=== PATIENT | male | born 1975 | race Hispanic/Latino ===

== ENCOUNTER 2022-11-01 18:36 | Emergency (ER) | payer OTHER ==
--- OUTSIDE RECORDS SUMMARY | 2022-11-01 18:44 | XMS REPORT | Continuity of Care Document ---
:1975 Author Organization [facility] t Address [address] [place] [address] Dr. Gu[address]ume [address] [place] [address] Care Team Providers Name Role Phone Perez SAXENA, [facility] Primary Care Physician [phone] KRISTEL BALDWIN Attending Clinician Unavailable Kristel Bucio Attending Clinician Jessica Mayes MD Attending Clinician [phone] JESSICA MAYES Attending Clinician Unavailable Jeovany Patterson MD Attending Clinician Ugo Maya CRNA Attending Clinician [phone] Flaquita Araujo MD Attending Clinician FLAQUITA ARAUJO Attending Clinician Unavailable Gilberto Jansen MD Attending Clinician GILBERTO JANSEN Attending Clinician Unavailable RAE JOHNSON Attending Clinician Unavailable RAE JOHNSON Attending Clinician Unavailable [facility], [facility] Attending Clinician Unavailable Rae Johnson MD Attending Clinician Doctor Unassigned, [place] Attending Clinician Unavailable SKYLAR NUNEZ Attending Clinician Unavailable JESSICA MAYES Admitting Clinician Unavailable FLAQUITA ARAUJO Admitting Clinician Unavailable GILBERTO JANSEN Admitting Clinician Unavailable Payers Payer Name Policy Type Policy Number Effective Date Expiration Date Vipin [place]' [id number] 2021 COMP 00:00:00 Problems Condition Condition Condition Status Onset Resolution Last Treating Co mments Source Name Details Category Date Date Treatment Clinician Date Hypertensi Hypertensi Disease Active 2021-[address] [facility] Olecranon Olecranon Disease Active [facility] bursitis bursitis 06-01 [facility] of left of left 00:00: Medical elbow elbow 00 Center Tear of Tear of Disease Active [facility] left left 06-01 [facility] supraspina supraspina 00:00: Me dical tus tendon tus tendon 00 Ce nter Work Work Disease Active [facility] related related 06-01 [facility] injury injury 00:00: Medical 00 Center SLAP SLAP Disease Active [facility] lesion of lesion of - Luke s left left 00:00: Medical shoulder shoulder 00 Center Labral Labral Disease Active [facility] tear of tear of 06-01 [facility] long head long head 00:00: Medi jana of left of left 00 Center biceps biceps tendon, tendon, initial initial encounter encounter Tendinopat Tendinopat Disease Active [facility] hy of left hy of left 8-03 [facility] biceps biceps 00:00: Medical tendon tendon 00 Center Impingemen Impingemen Disease Active [facility] t syndrome t syndrome - [facility] k[facility] of left of left 00:00: Medical shoulder shoulder 00 Center Uncontroll Uncontroll Disease Active U nick ed ed 8-20 ity of hypertensi [place] [facility] [place] Chest Chest Disease Active Univers tightness tightness 8-20 ity of 00:00: [place] 00 Medical Branch Palpitatio Palpitatio Disease Active U nick ns ns 8-20 ity of 00:00: 00 Medical Branch TIA TIA Disease Active Overview: Univer s (transient (transient Formattin ity of ischemic ischemic g of this Jace as attack) attack) note Medical might be Branch different from the original. 2018 Allergies, Adverse Reactions, Alerts Allergy Allergy Status Severity Reaction(s) Onset Inactive Treating Comm ents Source Name Type Date Date Clinician NO KNOWN Allergy Active [facility] ALLERGIE S Social History Social Habit Start Date Stop Date Quantity Comments Source History SDOH [facility] Alcohol Frequency Medical Center History SDOH [facility] Alcohol Std Medical Cente r Drinks History SDOH [facility] Alcohol Binge Medical Matthew [facility] Exposure to 2022-09-26 2022-10-[address] [facility] SARS-CoV-2 00:00:00 09:30:00 Medical Center (event) Alcohol intake 2022-10-06 2022-10-06 [facility]00 of alcohol Medical Center (finding) History SDOH 2022-06-29 2022-06-[address] [facility] Alcohol Comment 00:00:00 00:00:00 Medical C enter Tobacco use and 2022-06-23 2022-06-[address] [facility] exposure 00:00:00 00:00:00 Medical Center Tobacco Comment 2021-06-18 2021-06-18 2-3 cigarettes Unive rsity of 00:00:00 00:00:00 per day [facility] History of 2011-05-30 Smoker University of tobacco use 00:00:00 [facility] Sex Assigned At [address] [facility] 00:00:00 00:00:00 Medical Center Smoking Status Start Date Stop Date Source Never smoker [facility] Former smoker 2021-06-18 00:00:00 2021-06-18 00:00:00 [facility] Medications Ordered Filled Start Stop Current Ordering Indication Dosage Frequency Signature Comments Components Source Medication Medication Date Date Medication? Clinician (SIG) Name Name TAKE 2021-10 No TABLET BY 2-05 MOUTH THREE 00:00: TIMES DAILY 00 TAKE 2021-10 No TABLET BY 2-05 MOUTH ONCE 00:00: DAILY 00 losartan-hy 2021-10 Yes 1{tbl} QD Take [address] droCHLOROth 2-05 tablet by Paramjit dow 00:00: mouth Medical (HYZAAR) 00 daily. Center 50-12.5 mg per tablet celecoxib 2021- No 200mg QD Take [address] (CeleBREX) 06-23 capsule [facility] 200 MG 00:00: 23:59 (200 mg Medical capsule 00 :00 total) by Center mouth daily for 30 days. gabapentin 2021- No 100mg [id number] Take [address] (NEURONTIN) 06-23 [id number] capsule [facility] 100 MG 00:00: 23:59 3D (100 mg Medical capsule 00 :00 total) by Center mouth 3 (three) times daily for 30 days. ascorbic 2021- No 500mg QD Take 1 [facility] t acid, 06-23 tablet [facility] vitamin C, 00:00: 23:59 (500 mg Med ical (ascorbic 00 :00 total) by Cente r acid with mouth vinnie hips) daily for 500 MG 30 days. tablet traMADoL No 50mg Take [address] (ULTRAM) 50 06-23 tablet (50 L ukes mg tablet 00:00: 23:59 mg total) Me dical 00 :00 by mouth Center every 6 (six) hours as needed for Pain for up to 10 days Mild Pain. Max Daily Amount: 200 mg HYDROcodone 2021- No 1{tbl} Take [address] -acetaminop 06-23 tablet by Nadine coffman (NORCO 00:00: 23:59 mouth Medic al 10-325) 00 :00 every 6 Center 10-325 mg (six) per tablet hours as needed for Pain for up to 7 days. Max Daily Amount: 4 tablets docusate 2021- No 100mg Take 1 [facility] t sodium 06-23 capsule [facility]ukes (Colace) 00:00: 23:59 (100 mg Medic al 100 MG 00 :00 total) by Center capsule mouth once for 1 dose. naproxen 2021- No 550mg Q.5D Take [address] sodium 04-20-02 mg by Lukes (ANAPROX) 00:00: 00:00 mouth 2 Medi jana 550 MG 00 :00 (two) Center tablet times daily. amLODIPine Yes 5mg Take 1 Unive rs 5 mg tablet 1-24 tablet by ity of 00:00: mouth [place] 00 daily. Medical Branch amLODIPine Yes 1{tbl} QD Take [address] (NORVASC) 5 1-24 tablet by Paramjit es MG tablet 00:00: mouth Medical 00 daily. Center hydroCHLORO 2020-10 Yes [id number] 25mg Take 1 Univers thiazide 25 2-13 tablet by ity of mg tablet 00:00: mouth [place] 00 daily. Medical Branch losartan 2020-10 Yes [id number] 100mg Take 1 Un sharee 100 mg 2-13 tablet by ity of tablet 00:00: mouth [place] 00 daily. Medical Branch Vital Signs Vital Name Observation Time Observation Value Comments Source Systolic blood 2022-02-09 19:07:00 138 mm[Hg] Univer sity [facility] Diastolic blood 2022-02-09 19:07:00 96 mm[Hg] Unive rsity [facility] Heart rate 2022-02-09 19:06:00 78 /min [facility] Body height 2022-02-09 19:06:00 167.6 cm [facility] Body weight 2022-02-09 19:06:00 95.709 kg [facility] BMI 2022-02-09 19:06:00 34.06 kg/m2 [facility] Oxygen saturation in 2022-02-09 19:06:00 96 /min [facility] Arterial blood by [facility] Pulse oximetry Branch Systolic blood 2022-10-06 09:31:00 158 mm[Hg] [facility] Diastolic blood 2022-10-06 09:31:00 90 mm[Hg] [facility] S [facility] Heart rate 2022-10-06 09:31:00 79 /min [facility] Body temperature 2022-10-06 09:29:00 36.44 Magaly [facility] Body height 2022-10-06 09:29:00 167.6 cm [facility] Body weight 2022-10-06 09:29:00 99.791 kg [facility] BMI 2022-10-06 09:29:00 35.51 kg/m2 [facility] Heart Rate 2022-10-03 16:23:00 90.00 /min Respiratory Rate 2022-10-03 16:23:00 18.00 /min BP Systolic 2022-10-03 16:23:00 200 mm[Hg] BP Diastolic 2022-10-03 16:23:00 108 mm[Hg] Weight Measured 2022-10-03 16:23:00 227.00 pounds Height Measured 2022-10-03 16:23:00 66.00 inches Body Temperature 2022-10-03 16:23:00 98.30 degrees Respiratory rate 2022-07-01 17:30:00 18 /min [facility] Oxygen saturation in 2022-07-01 17:30:00 97 /min [facility] Arterial blood by Medical Ce nter Pulse oximetry Procedures Procedure Date / Time Performing Clinician Source Performed XR CHEST 1 VIEW PORTABLE 2022-07-01 16:29:00 Jeovany Patterson [facility] ARTHROSCOPY, SHOULDER, 2022-07-01 13:28:00 Jessica Mayes [facility] WITH ROTATOR CUFF REPAIR [facility] ARTHROSCOPY, SHOULDER, 2022-07-01 13:28:00 Jessica Mayes [facility] WITH ACROMIOPLASTY AND [facility] enter SUBACROMIAL SPACE DECOMPRESSION TENODESIS, BICEPS 2022-07-01 13:28:00 Jessica Mayes [facility] EKG-SCANNED 2022-07-01 00:00:00 [facility] ECG 12-LEAD 2022-06-28 10:27:01 Ugo Mai [facility] COVID ANTIGEN 2022-06-28 10:22:00 Jessica Mayes [facility] BASIC METABOLIC PANEL 2022-06-28 10:22:00 Ugo Mai CH I [facility] CBC W/PLT COUNT & AUTO 2022-06-28 10:22:00 Ugo Mai [facility] PT/APTT 2022-06-28 10:22:00 Ugo Mai [facility] CBC W/PLT COUNT & AUTO 2022-06-28 10:22:[address] [facility] Plan of Care Planned Activity Planned Date Details Comments Source Future Scheduled 2023-10-[address] [facility] Test 00:00:00 Counseling and Medical Cente r Screening (12+) [code = Tobacco Cessation Counseling and Screening (12+)] Future Scheduled 2022-10-[address] [facility] Test 00:00:00 (12+) [code = Medical Center DEPRESSION SCREENING (12+)] Future Scheduled 2022-06-[address] [facility] Test 00:00:00 (#1) [code = Medical Center INFLUENZA VACCINE (#1)] Future Scheduled [address] [facility] Test 00:00:00 (procedure) [code = [facility] Center [id number]] Future Scheduled 1996 DTAP/TDAP/TD VACCINES [facility] Test 00:00:00 (1 - Tdap) [code = Medical C enter DTAP/TDAP/TD VACCINES (1 - Tdap)] Future Scheduled 1995 HEPATITIS C SCREENING [facility] Test 00:00:00 [code = HEPATITIS C Medical Center SCREENING] Future Scheduled 1978-05-10 COVID-19 VACCINE (#1) [facility] Test 00:00:00 [code = COVID-[address] VACCINE (#1)] Goal Plan of Care Note [code = 90355-5] Goal Plan of Care Note [code = 72311-8] Goal Plan of Care Note [code = 00263-6] Goal Plan of Care Note [code = 68634-1] Goal Plan of Care Note [code = 46634-1] Goal Plan of Care Note [code = 01082-2] Encounters Start End Encounter Admission Attending Care Care Encounter Source Date/Time Date/Time Type Type Clinicians Facility Department ID 2022-10-06 2022-10-[address] VANDAMelvin [facility] [id number] [facility] St 09:18:08 09:47:23 [facility] 2022-10-06 2022-10-[address] [id number] [facility] St 09:15:00 09:47:23 Visit [facility] 2022-10-06 2022-10-06 Travel [facility] [id number] [facility]00 [facility] 2022-10-03 2022-10-03 Outpatient RIGO SIERRA [id number] Jamar 16:17:58 16:17:58 [id number] Junito 2022-10-03 2022-10-03 Outpatient [id number] 00:00:00 00:00:00 Visit [id number] 2022-08-25 2022-08-25 Outpatient REID BALDWIN [facility] [id number] 09:24:12 09:57:15 [facility] 2022-08-25 2022-08-25 Office Christina [facility] [id number] 09:15:00 09:57:15 Visit [facility] 2022-08-25 2022-08-25 Travel [facility] [id number] [facility] 00[facility]00 [facility] 2022-07-14 2022-07-14 Outpatient REID YAIRJOSHUA [facility] [id number] 09:10:49 09:58:57 [facility] 2022-07-14 2022-07-14 Office Christina [facility] [id number] 09:00:00 09:58:57 Visit [facility] 2022-07-14 2022-07-14 Travel [facility] [id number] [facility] 00:[facility]00 [facility] 2022-07-01 2022-07-01 [facility] Sugey [facility] [id number] 10:25:00 17:40:00 Encounter Jessica ewing [facility] 2022-07-01 2022-07-01 Outpatient EL SUGEY, [facility] Surgery [id number] [facility] 10:25:00 17:40:00 JESSICA 2022-07-01 2022-07-01 Anesthesia Jeovany Patterson [facility] [id number] 13:28:00 16:07:[address] Luis [facility] 2022-07-01 2022-07-01 Surgery Sugey [facility] [id number] 11:30:00 14:00:00 [facility] 2022-07-01 2022-07-01 Refill Sugey [facility] [id number] 00:00:00 00:00:00 [facility] 2022-07-01 2022-07-01 Travel [facility] [id number] [facility] 00:[facility]00 [facility] 2022-06-29 2022-06-29 Travel [facility] [id number] [facility] 00:[facility]00 00:[facility]:00 [facility] 2022-06-28 2022-06-28 [facility] [id number] 10:20:09 23:59:00 [facility] 2022-06-28 2022-06-28 Outpatient EL SLSL [facility] [id number] [facility] 10:20:09 23:59:00 2022-06-23 2022-06-23 Office Sugey [facility] [id number] 11:30:00 12:58:57 Visit [facility] 2022-06-23 2022-06-23 Outpatient EL SUGEY [facility] [id number] 11:28:46 12:58:57 [facility] 2022-06-23 2022-06-23 Travel [facility] [id number] [facility] 00:[facility]00 00:[facility]:00 [facility] 2022-06-02 2022-06-02 Telephone Sugey [facility] [id number] 00:00:00 00:00:00 [facility] 2022-06-01 2022-06-01 Mirian Mayes [facility] [id number] 00:00:00 00:00:00 Only Jessica Moran [facility] 2022-02-09 2022-02-09 Office [facility] [id number] Univers 13:45:00 14:00:00 Visit [facility] [id number] it y of [place] [id number] Jace as HANSEL?BLEA [phone] [address] OFFICE [facility] 2022-02-09 2022-02-09 Outpatient [facility] [id number] Univers 13:45:00 13:45:00 FLAQUITA neville [facility] [place] 2021-12-24 2021-12-24 Telephone [facility] [id number] Univers 00:00:00 00:00:00 Herbisidro [place] [id number] ity of [place] [facility] [id number] [phone] [facility] NAL [address] [place] [address] 2021-12-15 2021-12-15 Outpatient [facility] [id number] Univers 09:20:00 09:20:00 GILBERTO ity o f [facility] 2021-11-24 2021-11-24 Outpatient [facility] [id number] Univers 09:00:00 09:00:00 MIGDALIANGJUN ity o f [facility] 2021-11-22 2021-11-22 Telephone [facility] [id number] Univers 00:00:00 00:00:00 Herbisidro [facility] [id number] ity of [place] [facility] [id number] [phone] [place] [id number] [facility] 2021-11-16 2021-11-16 Telephone [facility] [id number] Univers 00:00:00 00:00:00 Gilberto HENDRIX [id number] ity of [place] [facility] [id number] [phone] Dc dical NAL 059 [facility] 2021-11-11 2021-11-11 Outpatient R INDERJIT [facility] [id number] Univers 07:57:20 23:59:00 GILBERTO neville o f [facility] 2021-11-11 2021-11-11 [facility] [id number] Univers 07:57:20 23:59:00 Encounter Gilberto HENDRIX [id number] ity of [place] [id number] [facility] [phone] Dc dical NAL 843 [facility] 2021-11-11 2021-11-11 Outpatient [facility] [id number] Univers 08:00:00 08:00:00 HERBISIDRO jamin o [facility] 2021-11-04 2021-11-04 Outpatient R RAE JOHNSON [facility] [id number] Univers 10:00:00 10:00:00 RAE JOHNSON [facility] [place] 2021-11-04 2021-11-04 [employer] [facility] [id number] Univers 08:30:00 08:45:00 Visit Rae Johnson [id number]. 10 it[id number] [phone] [address] 2021-11-04 2021-11-04 Outpatient R RAE JOHNSON [facility] [id number] Univers 08:30:00 08:30:00 RAE JOHNSON [facility] [place] 2021-11-01 2021-11-01 Outpatient [facility] [id number] Univers 08:00:00 08:00:00 GILBERTO jamin o abril [facility] 2021-10-12 2021-10-12 [place] [facility] [id number] Univers 00:00:00 00:00:00 Gilberto HENDRIX [id number] ity of [place] [facility] [id number] [phone] Dc dical NAL 9 [facility] 2021-10-11 2021-10-11 Outpatient R [facility] [id number] Univers 10:20:00 11:15:50 GILBERTO hawthorney o [facility] 2021-10-11 2021-10-11 Office [facility] [id number] Univers 10:20:00 11:15:50 Visit Gilberto HENDRIX [id number] ity of [place] [id number] [phone] Dc dic[address] 2021-10-11 2021-10-11 Outpatient R [facility] [id number] Univers 10:20:00 11:15:50 GILBERTO neville o [facility] 2021-10-11 2021-10-11 Outpatient R [facility] [id number] Univers 10:20:00 11:15:50 GILBERTO ity o [facility] 2021-10-11 2021-10-11 Orders Doctor HOANG [id number] Univers 00:00:00 00:00:00 Only Unassigned, TITA [id number] ity of [facility] [id number] Jace as [phone] [address] 2021-06-18 2021-06-18 Outpatient R [facility] [id number] Univers 15:30:00 15:30:00 SKYLAR itmariposa of [facility] 2021-06-18 2021-06-18 Orders Doctor HOANG [id number] Univers 00:00:00 00:00:00 Only Unassigned, TITA [id number] ity of [facility] [id number] Jace as [phone] [address] Results Test Description Test Time Test Comments Results Result [facility] e Comments RAD, CHEST, 1 Reason for VIEW, NON DEPT 2 exam:->anesthesia 16:41:[address] [facility] performed at [facility] the bedside?->Yes CENTERName: [facility] : 1975 Sex: M FINAL REPORT EXAMINATION: RAD, CHEST, 1 VIEW, NON DEPT INDICATION: Anesthesia concern COMPARISON: None FINDINGS: LINES/TUBES:EKG leads overlie the chest. LUNGS:The lungs are well-inflated. No focal consolidation or pulmonary edema. Mild left midlung subsegmental atelectasis. PLEURA:No pleural effusion or pneumothorax. MEDIASTINUM:The cardiomediastinal silhouette appears normal in size and shape. BONES/SOFT TISSUES:No acute osseous injury. ABDOMEN:No free air under the diaphragm. IMPRESSION: Left midlung subsegmental atelectasis. No focal pneumonia or airspace edema. Signed: Otto Grace MDReport Verified Date/Time: 07/01/2022 16:41:06 C METABOLIC PANEL 2022-06-28 11:06:49 Test Item Value Reference Range Interpretation Comme nts SODIUM (BEAKER) (test 140 meq/L 135-148 code = 381) POTASSIUM (BEAKER) 3.5 meq/L 3.6-5.5 L (test code = 379) CHLORIDE (BEAKER) (test 105 meq/L 98-106 code = 382) CO2 (BEAKER) (test code 25 meq/L 20-29 = 355) BLOOD UREA NITROGEN 14 mg/dL 10-26 (BEAKER) (test code = 354) CREATININE (BEAKER) 0.71 mg/dL 0.50-1.20 (test code = 358) GLUCOSE RANDOM (BEAKER) 97 mg/dL 70-110 (test code = 652) CALCIUM (BEAKER) (test 9.2 mg/dL 8.5-10.5 code = 697) EGFR (BEAKER) (test 116 mL/min/1.73 sq I nterpretation of eGFR values code = 1092) m Stage Descripti on Result G1 Normal or high >=90 G2 Mildly decreased 60-89 G3a Mildly to moderately 45-5 9 G3b Moderately to severely 30- 44 G4 Severly decreased 15-29 G5 Kidney failure <15Repo rted eGFR is based on the CK D-EPI 2020 equation that d oes not use a race coefficien tEstimated GFR is not as accurate as Creatinine Clearance in pr edicting glomerular filt ration rate. Estimated GFR i s not applicable for dialysis noam carrera [employer] Press Operator ID - [id number] ID - [id number] ID - [id number] ID - [id number] ID - [id number] ID - [id number] ID - [id number] ID - [id number] ID - [id number] ID - [id number] ID - [id number] ID - [id number] ID - [id number] 11:02:56 Test Item Value Reference Range Interpretation Comments PROTIME (BEAKER) (test 11.4 seconds 9.3-12.0 Final Information code = 759) (Auto Output) INR (BEAKER) (test 1.04 See_Comment Final Inf ormation code = 370) (Auto Output) [Automated mess age] The system Personal Style Finder generated this result transmit joselyn reference range : <=5.90. The reference range was not used to interpret this result as normal/abnormal . PARTIAL THROMBOPLASTIN 32.2 seconds 23.0-35.0 Final Information TIME (BEAKER) (test (Auto Ou tput) code = 760) RECOMMENDED COUMADIN/WARFARIN INR THERAPY RANGESSTANDARD DOSE: 2.0 - 3.0 Includes: PROPHYLAXIS for venous thrombosis, systemic embolization; TREATMENT for venous thrombosis and/or pulmonary embolus.HIGH RISK: Target INR is 2.5-3.5 for patients with mechanical heart valves.COVID [id number] 11:02:18 Test Item Value Reference Range Interpretation Comments SARS COVID ANTIGEN Negative Negative (test code = 82431-6) RUBI (test code = RUBI) The [employer] SARS Antigen test does not differentiate between SARS-CoV and SARS-CoV-2. The test has been authorized by the FDA under an EUA for use by authorized laboratories. Lab Interpretation Normal (test code = 25498-1) [facility] [id number] 11:02:18 Test Item Value Reference Range Interpretation Comments SARS COVID ANTIGEN (test code = Negative Negative [id number]) The [employer] SARS Antigen test does not differentiate between SARS-CoV and SARS-CoV-2.The test has been authorized by the FDA under an EUA for use by authorized laboratories.CBC W/PLT COUNT & AUTO [id number] 10:47:12 Test Item Value Reference Range Interpretation Comments WHITE BLOOD CELL COUNT (BEAKER) 10.7 K/ L 4.0-10.0 H (test code = 775) RED BLOOD CELL COUNT (BEAKER) 4.96 M/ L 4.20-5.80 (test code = 761) HEMOGLOBIN (BEAKER) (test code = 15.5 GM/DL 13.0-16.8 410) HEMATOCRIT (BEAKER) (test code = 43.2 % 36.0-50.0 411) MEAN CORPUSCULAR VOLUME (BEAKER) 87.1 fL 82.0-99.0 (test code = 753) MEAN CORPUSCULAR HEMOGLOBIN 31.3 pg 27.0-33.0 (BEAKER) (test code = 751) MEAN CORPUSCULAR HEMOGLOBIN CONC 35.9 GM/DL 32.0-36.0 (BEAKER) (test code = 752) RED CELL DISTRIBUTION WIDTH 12.7 % 12.0-15.0 (BEAKER) (test code = 412) PLATELET COUNT (BEAKER) (test 245 K/CU MM 150-430 code = 756) MEAN PLATELET VOLUME (BEAKER) 9.5 fL 6.0-11.5 (test code = 754) NUCLEATED RED BLOOD CELLS 0 /100 WBC 0-0 (BEAKER) (test code = 413) NEUTROPHILS RELATIVE PERCENT 63 % (BEAKER) (test code = 429) LYMPHOCYTES RELATIVE PERCENT 27 % (BEAKER) (test code = 430) MONOCYTES RELATIVE PERCENT 6 % (BEAKER) (test code = 431) EOSINOPHILS RELATIVE PERCENT 2 % (BEAKER) (test code = 432) BASOPHILS RELATIVE PERCENT 1 % (BEAKER) (test code = 437) NEUTROPHILS ABSOLUTE COUNT 6.79 K/ L 1.80-8.00 (BEAKER) (test code = 670) LYMPHOCYTES ABSOLUTE COUNT 2.92 K/ L 1.48-4.50 (BEAKER) (test code = 414) MONOCYTES ABSOLUTE COUNT (BEAKER) 0.64 K/ L 0.00-1.30 (test code = 415) EOSINOPHILS ABSOLUTE COUNT 0.26 K/ L 0.00-0.50 (BEAKER) (test code = 416) BASOPHILS ABSOLUTE COUNT (BEAKER) 0.06 K/ L 0.00-0.20 (test code = 417) IMMATURE GRANULOCYTES-RELATIVE 1 % 0-0 H PERCENT (BEAKER) (test code = 1317)
--- NOTE | 2022-11-01 19:58 | RAD REPORT ---
EXAM DESCRIPTION: CTStone Protocol - 11/01/2022 7:41 pm CLINICAL HISTORY: llq pain COMPARISON: No comparisons TECHNIQUE: CT of the abdomen and pelvis was performed. All CT scans are performed using dose optimization technique as appropriate and may include automated exposure control or mA/KV adjustment according to patient size. FINDINGS: Lower chest: No acute abnormality. Liver: No acute abnormality or suspicious lesions. Biliary: No biliary ductal dilatation. Stomach: No significant focal abnormality. Duodenum: No significant focal abnormality. Pancreas: No significant abnormality. Spleen: No significant abnormality. Adrenal: No suspicious lesions. Kidney/ureter: Mild left sided hydroureteronephrosis with punctate left UVJ stone measuring approxima tely 1 mm. Retroperitoneum: No retroperitoneal adenopathy. Vascular: No aneurysm. Bowel: No significant focal abnormality. Peritoneum: No ascites or free air. Tiny fat containing umbilical hernia. Bladder: Grossly unremarkable. Reproductive: No adnexal masses. Bones: No acute fracture. Other: n/a IMPRESSION: Punctate 1 mm stone at the left UVJ with mild left-sided hydroureteronephrosis.
[2022-11-01 20:24] LABS: Absolute Lymphocytes (CBC) 1.6 K/uL (0.7-4.9); Hematocrit 42.2 % (39.6-49.0); Lymphocytes % 11.4 % (15.3-44.8); MCV 86.8 fL (80-100); MPV 7.4 fL (7.6-11.3); RBC Red Blood Cell Count 4.87 M/uL (4.33-5.43)
[2022-11-01] MEDS ORDERED: MORPHINE 4 MG/ML SYR ONE (20:24)
[2022-11-01] MEDS ORDERED: TAMSULOSIN 0.4 MG SR CAP ONE (20:25)
[2022-11-01] MEDS ORDERED: ONDANSETRON 4 MG/2 ML VIAL ONE (20:25)
[2022-11-01] MEDS ORDERED: KETOROLAC 30 MG/ML INJ ONE (20:25)
[2022-11-01] MEDS ORDERED: NA CHLORIDE 0.9% 1,000 ML ONE (20:25)
[2022-11-01] MEDS ORDERED: MAGNESIUM SULFATE 1 gm IVPB 1 GM/100 ML BAG IV ONE (20:25)
[2022-11-01 20:40] LABS: Albumin 3.6 g/dL (3.4-5.0); Bilirubin Total 0.2 mg/dL (0.2-1.0); Potassium 3.6 mmol/L (3.5-5.1); Protein, Total 7.4 g/dL (6.4-8.2)
[2022-11-01 21:03] LABS: Urine Blood 3+ (Negative); Urine Glucose Negative (Negative); Urine Protein Negative (Negative); Urine Specific Gravity 1.015 (1.005-1.030)
--- NOTE | 2022-11-01 21:04 | EDPHYS ---
Physician Documentation [facility] Name: Octavio Galloway Age: 46 yrs Sex: Male : 1975 Arrival Date: 11/01/2022 Time: 18:39 Bed 15 Private MD: ED Physician Donnie Tolbert HPI: 11/01 20:07 This 46 yrs old Male presents to ER via Ambulatory with complaints of Flank kb Pain. 20:07 The patient has not recently seen a physician. kb 20:07 The patient presents with abdominal pain in the left lower quadrant. Onset: The kb symptoms/episode began/occurred today, at 18:00. The symptoms do not radiate. Associated signs and symptoms: none. The symptoms are described as constant, sharp. Modifying factors: The symptoms are alleviated by nothing, the symptoms are aggravated by pressure. Severity of pain: At its worst the pain was moderate in the emergency department the pain is unchanged. The patient has not experienced similar symptoms in the past. Pt reports sudden onset of LLQ pain at 1800. Denies any other symptoms. Historical: - Allergies: 19:22 No Known Allergies; tw5 - Home Meds: 19:22 HTN Medication [Active]; tw5 - PMHx: 19:22 Hypertensive disorder; tw5 - PSHx: 19:22 left shoulder surgery- 2021; - Immunization history:: Flu vaccine is up to date. - Social history:: Smoking status: Patient denies any tobacco usage or history of. ROS: 20:06 Constitutional: Negative for fever, chills, and weight loss. kb 20:06 Abdomen/GI: Positive for abdominal pain, Negative for nausea, vomiting, and diarrhea. 20:06 All other systems are negative. Exam: 20:06 Constitutional: This is a well developed, well nourished patient who is awake, alert, kb and in no acute distress. Head/Face: Normocephalic, atraumatic. ENT: Moist Mucous membranes Cardiovascular: Regular rate and rhythm with a normal S1 and S2. No gallops, murmurs, or rubs. No pulse deficits. Respiratory: Respirations even and unlabored. No increased work of breathing. Talking in full sentences Skin: Warm, dry with normal turgor. Normal color. MS/ Extremity: Pulses equal, no cyanosis. Neurovascular intact. Full, normal range of motion. Neuro: Awake and alert, GCS 15, oriented to person, place, time, and situation. Moves all extremities. Normal gait. Psych: Awake, alert, with orientation to person, place and time. Behavior, mood, and affect are within normal limits. 20:06 Abdomen/GI: Inspection: abdomen appears normal, Bowel sounds: normal, Palpation: soft, in all quadrants, moderate abdominal tenderness, in the left lower quadrant. Vital Signs: 19:19 BP 164 / 110; Pulse 114; Resp 18; Temp 98.1; Pulse Ox 95% on R/A; Weight 99.79 kg; tw5 Height 5 ft. 6 in. (167.64 cm); Pain 10/10; 20:40 BP 145 / 86; Pulse 96; Resp 18; Pulse Ox 97% on R/A; ll3 21:54 BP 148 / 88; Pulse 93; Resp 16; Pulse Ox 97% on R/A; ll3 19:19 Body Mass Index 35.51 (99.79 kg, 167.64 cm) tw5 MDM: 19:21 Patient medically screened. kb 20:07 Data reviewed: vital signs, nurses notes. Data interpreted: Pulse oximetry: on room air kb is 95 %. Interpretation: normal. 21:02 Counseling: I had a detailed discussion with the patient and/or guardian regarding: the kb historical points, exam findings, and any diagnostic results supporting the discharge/admit diagnosis, lab results, radiology results, the need for outpatient follow up, a family practitioner, a urologist, to return to the emergency department if symptoms worsen or persist or if there are any questions or concerns that arise at home. ED course: I considered the following discharge prescriptions or medication management in the emergency department: antibiotics considered, but not indicated at this time;History obtained from: pt and mother . 21:04 Differential diagnosis: diverticulitis, gastritis, Ureterolithiasis, urinary tract kb infection. Response to treatment: the patient's symptoms have resolved after treatment, the patient's pain is gone. 11/01 19:22 Order name: CBC with Diff; Complete Time: 20:30 kb 11/01 19:22 Order name: CMP; Complete Time: 20:44 kb 11/01 19:22 Order name: CT Stone Protocol; Complete Time: 20:01 kb 11/01 19:22 Order name: Lipase; Complete Time: 20:44 kb 11/01 21:03 Order name: Urine Dipstick-Ancillary; Complete Time: 21:04 EDMS 11/01 19:22 Order name: IV Saline Lock; Complete Time: 20:17 kb 11/01 19:22 Order name: Labs collected and sent; Complete Time: 20:17 kb Administered Medications: 20:27 Drug: Ketorolac 15 mg Route: IVP; Site: right antecubital; ll3 22:08 Follow up: Response: No adverse reaction ll3 20:28 Drug: NS 0.9% 1000 ml Route: IV; Rate: 1000 ml; Site: right antecubital; ll3 22:07 Follow up: Response: No adverse reaction; IV Status: Completed infusion; IV Intake: ll3 1000ml 20:30 Drug: Zofran (Ondansetron) 4 mg Route: IVP; Site: right antecubital; ll3 22:07 Follow up: Response: No adverse reaction ll3 20:32 Drug: Flomax (tamsulosin) 0.4 mg Route: PO; ll3 22:07 Follow up: Response: No adverse reaction ll3 20:33 Drug: morphine 4 mg Route: IVP; Infused Over: 4 mins; Site: right antecubital; ll3 22:08 Follow up: Response: No adverse reaction; Marked relief of symptoms ll3 20:39 Drug: Magnesium Sulfate 1 grams Route: IVPB; Infused Over: 30 mins; Site: right ll3 antecubital; 22:07 Follow up: Response: No adverse reaction; IV Status: Completed infusion; IV Intake: [id number] Disposition Summary: 11/01/22 21:03 Discharge Ordered Location: Home kb Condition: Stable kb Diagnosis - Calculus of ureter kb Followup: kb - With: Emergency Department - When: As needed - Reason: Worsening of condition Followup: kb - With: Private Physician - When: 2 - 3 days - Reason: Recheck today's complaints, Continuance of care, Re-evaluation by your physician Discharge Instructions: - Discharge Summary Sheet kb - Kidney Stones, [id number] kb - Dietary Guidelines to Help Prevent Kidney Stones kb Forms: - Medication Reconciliation Form kb - Thank You Letter kb - Antibiotic Education kb - Prescription Opioid Use kb Prescriptions: - Flomax 0.4 mg Oral capsule - take 1 capsule by ORAL route once daily 1/2 hour following the same meal each day; 10 capsule; Refills: 0, Product Selection Permitted - Zofran 4 mg Oral Tablet - take 1 tablet by ORAL route every 6 hours As needed; 20 tablet; Refills: 0, kb Product Selection Permitted - Diclofenac Sodium 75 mg Oral tablet,delayed release (DR/EC) - take 1 tablet by ORAL route 2 times per day As needed; 30 tablet; Refills: 0, kb Product Selection Permitted Signatures: Dispatcher [employer] Nilsa Daly, Chayito Etienne tw5 Kacie Curtis, RN RN ll3
--- NOTE | 2022-11-01 21:04 | ER ---
Nurse's Notes [facility] Name: Octavio Galloway Age: 46 yrs Sex: Male : 1975 Arrival Date: 11/01/2022 Time: 18:39 Bed 15 Private MD: Diagnosis: Calculus of ureter Presentation: 11/01 19:19 Chief complaint: Patient states: "I am having pain right here, it is bad. In my lower tw5 left side of my stomach. This is the first time I have had this kind of pain.". Coronavirus screen: Vaccine status: Patient reports receiving the 2nd dose of the covid vaccine. Moderna. Ebola Screen: Patient negative for fever greater than or equal to 101.5 degrees Fahrenheit, and additional compatible Ebola Virus Disease symptoms Patient denies exposure to infectious person. Patient denies travel to an Ebola-affected area in the 21 days before illness onset. Initial Sepsis Screen: Does the patient meet any 2 criteria? HR > 90 bpm. Does the patient have a suspected source of infection? Yes: Acute abdominal pain. Risk Assessment: Do you want to hurt yourself or someone else? Patient reports no desire to harm self or others. Onset of symptoms was November 01, 2022 at 18:00. 19:19 Method Of Arrival: Ambulatory tw5 19:19 Acuity: TALA 3 tw5 Triage Assessment: 19:22 General: Appears uncomfortable, Behavior is cooperative, appropriate for age. Pain: tw5 Complains of pain in left lower quadrant Pain currently is 10 out of 10 on a pain scale. Historical: - Allergies: 19:22 No Known Allergies; tw5 - Home Meds: 19:22 HTN Medication [Active]; tw5 - PMHx: 19:22 Hypertensive disorder; tw5 - PSHx: 19:22 left shoulder surgery- 2021; tw5 - Immunization history:: Flu vaccine is up to date. - Social history:: Smoking status: Patient denies any tobacco usage or history of. Screenin:[address] [facility] ED Fall Risk Assessment (Adult) History of falling in the last 3 months, ll3 including since admission No falls in past 3 months (0 pts) Confusion or Disorientation No (0 pts) Intoxicated or Sedated No (0 pts) Impaired Gait No (0 pts) Mobility Assist Device Used No (0 pt) Altered Elimination No (0 pt) Score/Fall Risk Level 0 - 2 = Low Risk Oriented to surroundings, Maintained a safe environment. Abuse screen: Denies threats or abuse. Denies injuries from another. Nutritional screening: No deficits noted. Tuberculosis screening: No symptoms or risk factors identified. Assessment: 20:30 General: Appears uncomfortable, Behavior is calm, cooperative. Pain: Complains of pain ll3 in left lower quadrant Pain does not radiate. Pain currently is 6 out of 10 on a pain scale. Pain began 1 day ago. Is continuous. Neuro: Level of Consciousness is awake, alert, obeys commands, Oriented to person, place, time, situation. Respiratory: Respiratory effort is even, unlabored, Respiratory pattern is regular, symmetrical. : Denies incontinence, pain urinary frequency. Derm: Skin is pink, warm \\T\\ dry. Vital Signs: 19:19 BP 164 / 110; Pulse 114; Resp 18; Temp 98.1; Pulse Ox 95% on R/A; Weight 99.79 kg; tw5 Height 5 ft. 6 in. (167.64 cm); Pain 10/10; 20:40 BP 145 / 86; Pulse 96; Resp 18; Pulse Ox 97% on R/A; ll3 21:54 BP 148 / 88; Pulse 93; Resp 16; Pulse Ox 97% on R/A; ll3 19:19 Body Mass Index 35.51 (99.79 kg, 167.64 cm) tw5 ED Course: 18:39 Patient arrived in ED. rg4 18:39 [facility] kb 18:39 Donnie Tolbert MD is Attending Physician. kb 19:22 Triage completed. tw5 19:22 Arm band placed on. tw5 19:42 CT Stone Protocol In Process Unspecified. EDMS 20:43 Inserted saline lock: 20 gauge in right antecubital area, using aseptic technique. rv1 Blood collected. 21:55 Patient has correct armband on for positive identification. Bed in low position. Call ll3 light in reach. Side rails up X 1. 21:55 No provider procedures requiring assistance completed. IV discontinued, intact, ll3 bleeding controlled, No redness/swelling at site. Pressure dressing applied. Administered Medications: 20:27 Drug: Ketorolac 15 mg Route: IVP; Site: right antecubital; ll3 22:08 Follow up: Response: No adverse reaction ll3 20:28 Drug: NS 0.9% 1000 ml Route: IV; Rate: 1000 ml; Site: right antecubital; ll3 22:07 Follow up: Response: No adverse reaction; IV Status: Completed infusion; IV Intake: ll3 1000ml 20:30 Drug: Zofran (Ondansetron) 4 mg Route: IVP; Site: right antecubital; ll3 22:07 Follow up: Response: No adverse reaction ll3 20:32 Drug: Flomax (tamsulosin) 0.4 mg Route: PO; ll3 22:07 Follow up: Response: No adverse reaction ll3 20:33 Drug: morphine 4 mg Route: IVP; Infused Over: 4 mins; Site: right antecubital; ll3 22:08 Follow up: Response: No adverse reaction; Marked relief of symptoms ll3 20:39 Drug: Magnesium Sulfate 1 grams Route: IVPB; Infused Over: 30 mins; Site: right ll3 antecubital; 22:07 Follow up: Response: No adverse reaction; IV Status: Completed infusion; IV Intake: [id number] Medication: 22:07 VIS not applicable for this client. ll3 Intake: 22:07 IV: 1000ml; Total: 1000ml. ll3 22:07 IV: 50ml; Total: 1050ml. ll3 Outcome: 21:03 Discharge ordered by . kb 21:55 Discharged to home ambulatory, with family. ll3 21:55 Condition: stable 21:55 Discharge instructions given to patient, family, Instructed on discharge instructions, follow up and referral plans. medication usage, Demonstrated understanding of instructions, follow-up care, medications, Prescriptions given X 3. 22:08 Patient left the ED. ll3 Signatures: Dispatcher [employer] EDMS Nilsa Holland, ANNABEL ZHOU-Selena Mcallister rg4 Chayito Ashby tw5 Kacie Curtis RN RN ll3 Azucena Méndez rv1
== END 2022-11-01 22:08 | disposition home or self-care (01) ==
LOC: ER 18:36
DX: N20.1 Calculus of ureter (principal); I10 Essential (primary) hypertension
CPT/HCPCS: 85025; 36415; 81003; 83690; 80053; 76377; 74176; J3475; J7030; J2405; 96365; 96375; 99284